=== PATIENT | female | born 1990 | race Caucasian/White ===

== ENCOUNTER 2025-06-20 10:43 | Emergency (ER) | payer OTHER, SELFPAY | END 2025-06-20 11:34 | disposition home or self-care (01) | LOC: MADERS 10:43 | DX: S93.411A Sprain of calcaneofibular ligament of right ankle, initial encounter (principal); W10.1XXA Fall (on)(from) sidewalk curb, initial encounter ==

== ENCOUNTER 2025-09-19 10:14 | Emergency (ER) | payer OTHER, SELFPAY | END 2025-09-19 11:03 | disposition home or self-care (01) | LOC: MADERS 10:14 | DX: R50.9 Fever, unspecified (principal); R53.83 Other fatigue; R52 Pain, unspecified; R05.9 Cough, unspecified | CPT/HCPCS: 87428; 99283 ==